=== PATIENT | female | born 1970 | race Caucasian/White ===

== ENCOUNTER 2020-10-05 19:31 | Emergency (ER) | payer MEDICARE, OTHER ==
[~2020-10-05] VITALS: Ht 152.4 cm; Wt 167.2 kg
[2020-10-05] MEDS ORDERED: oxycodone PO (19:47)
[2020-10-05] MEDS ORDERED: seroquel PO (19:47)
[2020-10-05] MEDS ORDERED: abilify PO (19:47)
[2020-10-05] MEDS ORDERED: ARIP10TA16 PO (19:51)
[2020-10-05] MEDS ORDERED: OMEP20CA12 PO (19:51)
[2020-10-05] MEDS ORDERED: QUET100T33 PO (19:51)
[2020-10-05] MEDS ORDERED: QUET25TA34 PO (19:51)
[2020-10-05] MEDS ORDERED: METF-446 PO (19:51)
[2020-10-05] MEDS ORDERED: DULA0.75 SQ (19:51)
[2020-10-05] MEDS ORDERED: BUPR-49 PO (19:51)
[2020-10-05] MEDS ORDERED: ATOR40TA71 PO (19:51)
[2020-10-05] MEDS ORDERED: METO50 PO (19:51)
[2020-10-05] MEDS ORDERED: RAMI2.5C55 PO (19:51)
[2020-10-05 19:55] LABS: GLUCOSE,POINT OF CARE 571 MG/DL (70-110)
[2020-10-05 21:49] VITALS: BP 110/72
== END 2020-10-05 21:51 | disposition home or self-care (01) ==
LOC: EMS 19:31
DX: S82.52XA Displaced fracture of medial malleolus of left tibia, initial encounter for closed fracture (principal); E11.9 Type 2 diabetes mellitus without complications; F20.9 Schizophrenia, unspecified; F17.210 Nicotine dependence, cigarettes, uncomplicated; Z79.84 Long term (current) use of oral hypoglycemic drugs; W19.XXXA Unspecified fall, initial encounter; Y93.89 Activity, other specified; Y92.89 Other specified places as the place of occurrence of the external cause; Y99.8 Other external cause status
CPT/HCPCS: 29515; 99284

== ENCOUNTER 2022-06-14 13:34 | Emergency (ER) | payer MEDICARE, OTHER ==
[~2022-06-14] VITALS: Ht 157.5 cm; Wt 68.2 kg
[~2022-06-14 13:34] MED LIST: ARIP10TA56 PO; ATOR40TA71 PO; BUPR-49 PO; DULA0.75 SQ; METF-446 PO; METO50 PO; OMEP20CA12 PO; QUET100T34 PO; QUET25TA36 PO; RAMI2.5C55 PO; oxycodone PO
[2022-06-14 15:00] VITALS: BP 122/64
== END 2022-06-14 15:15 | disposition home or self-care (01) ==
LOC: EMS 13:37
DX: R18.8 Other ascites (principal); E11.9 Type 2 diabetes mellitus without complications; F20.9 Schizophrenia, unspecified; F15.90 Other stimulant use, unspecified, uncomplicated; F17.210 Nicotine dependence, cigarettes, uncomplicated; Z79.899 Other long term (current) drug therapy
CPT/HCPCS: 99283